=== PATIENT | female | born 1985 | race Caucasian/White ===

== ENCOUNTER → 2017-04-08 | Outpatient (CLI) | payer OTHER ==
[~2017-04-08] MED LIST: ESSENTIAL ONE1 EACH PO; ULTRAM50 MG PO; VITAMIN B12-FO1 EACH PO; VITAMIN D250000 UNIT PO
== END | disposition home or self-care (01) ==
LOC: CDC 12:10
DX: K80.10 Calculus of gallbladder with chronic cholecystitis without obstruction (principal); E66.01 Morbid (severe) obesity due to excess calories
CPT/HCPCS: 93000

== ENCOUNTER 2017-04-14 05:46 | Day surgery (SDC) | payer OTHER ==
[~2017-04-14] VITALS: Ht 160 cm; Wt 119.3 kg
[2017-04-14 06:05] VITALS: BP 129/68
[2017-04-14] MEDS ORDERED: BENTYL10 MG PO (06:09)
[2017-04-14 11:51] VITALS: BP 131/70
[2017-04-14 13:00] VITALS: BP 112/64
[2017-04-14 14:15] VITALS: BP 110/65
== END 2017-04-14 14:22 | disposition home or self-care (01) ==
LOC: SDC
PROC: 0FT44ZZ Resection of Gallbladder, Percutaneous Endoscopic Approach (ICD-10-PCS; principal; 2017-04-14)
DX: K80.10 Calculus of gallbladder with chronic cholecystitis without obstruction (principal); K66.0 Peritoneal adhesions (postprocedural) (postinfection); Z98.84 Bariatric surgery status; E78.5 Hyperlipidemia, unspecified; K21.9 Gastro-esophageal reflux disease without esophagitis; E66.01 Morbid (severe) obesity due to excess calories; Z68.42 Body mass index [BMI] 45.0-49.9, adult
CPT/HCPCS: 88304; J0131; J0330; J0690; J1100; J1170; J1644; J2250; J2405; J2710; J2765; J3010; S0020